=== PATIENT | male | born 1990 | race Caucasian/White ===

== ENCOUNTER 2020-04-16 11:35 | Emergency (ER) | payer OTHER ==
[~2020-04-16] VITALS: Ht 185.4 cm; Wt 128.4 kg
[2020-04-16] MEDS ORDERED: ASPIRIN (11:47)
--- NOTE | 2020-04-16 13:35 | REPVR ---
PROCEDURE INFORMATION: Exam: US Duplex Right Lower Extremity Veins, Limited Exam date and time: 04/16/2020 12:52 PM Age: 29 years old Clinical indication: Leg, lower; Right; Patient HX: Hit back of calf 2 days ago, still painful, not improving; Additional info: Right calf pain TECHNIQUE: Imaging protocol: Real-time Duplex ultrasound of the Right Lower Extremity with 2-D hadley scale, color Doppler flow and spectral waveform analysis with image documentation. Limited exam was focused on the right lower extremity veins. COMPARISON: No relevant prior studies available. FINDINGS: Right deep veins: The common femoral, femoral, and popliteal veins are patent without thrombus. Normal compressibility and/or augmentation response. The visualized posterior tibial vein trunk is patent. Right superficial veins: The saphenofemoral junction is patent without thrombus. Soft tissues: Unremarkable. IMPRESSION: No evidence of deep vein thrombosis in the visualized lower extremity. Electronically signed by: Tab King On 04/16/2020 13:35:51 PM
[2020-04-16 13:49] VITALS: BP 154/98
== END 2020-04-16 14:08 | disposition home or self-care (01) ==
LOC: M ED 11:35
DX: S86.211A Strain of muscle(s) and tendon(s) of anterior muscle group at lower leg level, right leg, initial encounter (principal); X50.1XXA Overexertion from prolonged static or awkward postures, initial encounter; Y92.89 Other specified places as the place of occurrence of the external cause; Y93.89 Activity, other specified; Y99.0 Civilian activity done for income or pay; Z88.5 Allergy status to narcotic agent; Z79.82 Long term (current) use of aspirin